=== PATIENT | male | born 1935 | race Two or more races ===

== ENCOUNTER 2017-02-24 00:53 | Emergency (ER) | payer MEDICARE, BC ==
[~2017-02-24] VITALS: Ht 182.9 cm; Wt 72.6 kg
[2017-02-24] MEDS ORDERED: AMLODIPINE TAB 5MG (01:26)
[2017-02-24] MEDS ORDERED: CLONAZEPAM 0.5 MG TABLET (01:26)
[2017-02-24] MEDS ORDERED: LABETALOL HCL 100 MG TABLET (01:26)
[2017-02-24] MEDS ORDERED: CLONAZEPAM TAB 0.5MG (01:26)
[2017-02-24] MEDS ORDERED: TRIAZOLAM 0.25 MG (01:26)
[2017-02-24] MEDS ORDERED: ATORVASTATIN 20 MG TABLET (01:26)
[2017-02-24] MEDS ORDERED: TDAP DIPH,PERTUSS,TET VAC/PF 0.5 ML DISP.SYRIN IM ONE ×2 (01:30→01:34)
--- NOTE | 2017-02-24 01:30 | NUR ---
Pt ambulated to room with shuffled steady gait c/o lacerations bilat hands near base of thumbs. Pt seen by Dr. High. Wounds cleaned with normal saline and drsg applied. Pos CMS s/p application. Pt refused tetanus. Pt stable for discharge per Dr. High. Pt given ACI. Pt verbalized understanding of dc instructions. Pt ambulated out of ER with shuffled steady gait.
[2017-02-24 04:54] VITALS: BP 141/71
== END 2017-02-24 01:30 | disposition home or self-care (01) ==
LOC: ER 00:56
DX: S61.412A Laceration without foreign body of left hand, initial encounter (principal); S61.001A Unspecified open wound of right thumb without damage to nail, initial encounter; W25.XXXA Contact with sharp glass, initial encounter; Y93.G1 Activity, food preparation and clean up; Y92.9 Unspecified place or not applicable; Y99.9 Unspecified external cause status
CPT/HCPCS: 90715; A4663